=== PATIENT | male | born 1985 | race American Indian/Alaskan Native ===

== ENCOUNTER 2018-05-03 01:53 | Emergency (ER) | payer SELFPAY ==
[2018-05-03 02:44] VITALS: BP 122/86
[2018-05-03] MEDS ORDERED: TYLENOL ONE (06:59)
[2018-05-03] MEDS ORDERED: TYLENOL PO ONE (07:00)
--- NOTE | 2018-05-05 14:26 | XRay Report ---
FINAL REPORT PROCEDURE: XR KNEE 3V LT TECHNIQUE: LEFT knee radiographs, AP, lateral and sunrise views. CPT 85114 HISTORY: twisted knee COMPARISON: No prior studies are available for comparison. FINDINGS: Fracture (s) and/or Dislocation(s): None . Alignment: Normal . Joint space(s): Normal . Soft tissues: There is a large suprapatellar effusion.. Bone mineralization: Normal . Foreign bodies: None . IMPRESSION: There is no acute bony or soft tissue abnormality. There is a joint effusion..
== END 2018-05-03 07:30 | disposition left against medical advice (07) ==
LOC: ED 01:53
DX: M25.562 Pain in left knee (principal); Z53.21 Procedure and treatment not carried out due to patient leaving prior to being seen by health care provider

== ENCOUNTER 2019-02-11 23:31 | Emergency (ER) | payer OTHER ==
[2019-02-12 00:04] VITALS: BP 145/90
[2019-02-12] MEDS ORDERED: NORCO 5/325 PO ONE (01:04)
--- NOTE | 2019-02-12 01:09 | Emergency Department Report ---
Abscess Boil HPI - HPI Chief Complaint: Skin/Abscess/Foreign Body Stated Complaint: CYST ON R INNER THIGH/SWELLING Time Seen by Provider: 02/12/19 00:53 Duration: 3 Days Location: Lower Extremity Severity: Moderate History: Yes Pain, Yes Previous History, No Fever, No Purulent Drainage, No Numbness, No Foreign Body, No Insect Bite HPI: Patient is a 32-year-old male presents to ED complaining of right groin swelling and tenderness for the past 3 days he denies he was a cyst is nausea vomiting. Home Medications: Home Medications Medication Instructions Recorded Confirmed Last Taken Multivitamin [Multi-Vitamin Daily] 1 tab PO DAILY 11/28/13 03/19/15 03/18/15 Previous Rx's Medication Instructions Recorded Last Taken Type ALBUTEROL Inhaler (OR & NICU) 2 puff IH QID PRN #1 inhalation 11/15/14 Unknown Rx [ProAir HFA Inhaler] Ibuprofen [Motrin 800 MG tab] 800 mg PO Q8H PRN #30 tablet 03/20/15 Unknown Rx oxyCODONE /ACETAMINOPHEN [Percocet 1 tab PO Q8HR PRN #12 tablet 03/20/15 Unknown Rx 5/325 mg] Acetaminophen/Codeine [Tylenol #3] 1 tab PO Q6H PRN #20 tab 11/03/15 Unknown Rx Penicillin Vk [Veetids TAB] 500 mg PO QID #40 tablet 11/03/15 Unknown Rx Penicillin Vk [Veetids TAB] 250 mg PO QID #28 tablet 11/23/16 Unknown Rx traMADol [Ultram] 50 mg PO Q4HR PRN #15 tablet 11/23/16 Unknown Rx Ibuprofen [Motrin 800 MG tab] 800 mg PO Q8HR PRN #30 tablet 02/12/19 Unknown Rx Sulfamethoxazole/Trimethoprim 1 each PO BID #20 tablet 02/12/19 Unknown Rx [Bactrim DS TAB] Allergies/Adverse Reactions: Allergies Allergy/AdvReac Type Severity Reaction Status Date / Time raspberry [Raspberry] Allergy Itching Verified 11/03/15 09:04 ED Review of Systems ROS: Stated complaint: CYST ON R INNER THIGH/SWELLING Other details as noted in HPI Comment: All other systems reviewed and negative ED Past Medical Hx - Past Medical History Previous Medical History?: Yes Hx Hypertension: Yes Hx Headaches / Migraines: Yes (migraines) Hx Asthma: Yes - Surgical History Past Surgical History?: No - Social History Smoking Status: Current Every Day Smoker Substance Use Type: Alcohol - Medications Home Medications: Home Medications Medication Instructions Recorded Confirmed Last Taken Type Multivitamin [Multi-Vitamin Daily] 1 tab PO DAILY 11/28/13 03/19/15 03/18/15 History ALBUTEROL Inhaler (OR & NICU) 2 puff IH QID PRN #1 inhalation 11/15/14 03/19/15 Unknown Rx [ProAir HFA Inhaler] Ibuprofen [Motrin 800 MG tab] 800 mg PO Q8H PRN #30 tablet 03/20/15 Unknown Rx oxyCODONE /ACETAMINOPHEN [Percocet 1 tab PO Q8HR PRN #12 tablet 03/20/15 Unknown Rx 5/325 mg] Acetaminophen/Codeine [Tylenol #3] 1 tab PO Q6H PRN #20 tab 11/03/15 Unknown Rx Penicillin Vk [Veetids TAB] 500 mg PO QID #40 tablet 11/03/15 Unknown Rx Penicillin Vk [Veetids TAB] 250 mg PO QID #28 tablet 11/23/16 Unknown Rx traMADol [Ultram] 50 mg PO Q4HR PRN #15 tablet 11/23/16 Unknown Rx Ibuprofen [Motrin 800 MG tab] 800 mg PO Q8HR PRN #30 tablet 02/12/19 Unknown Rx Sulfamethoxazole/Trimethoprim 1 each PO BID #20 tablet 02/12/19 Unknown Rx [Bactrim DS TAB] ED Abscess Boil Physical Exam - Exam General: Vital signs noted. No distress. Alert and acting appropriately. Size: 2 cm Exam: Yes Tenderness, Yes Fluctuance, No Surrounding Cellulites/Erythema, No Lymphangitis, No Crepitation, No Heart Murmur, No Normal Neurologic Exam, No Normal Circulation I & D Note - I & D Note I & D Note: ID notePatient positioned appropriately, 5cc lidocainewithout epinephrine was used as a local anesthetic. #11 blade scalpal used for single incision. Additional local anesthetic injected into surrounding viable tissue prior to blunt dissection of loculated adhesions. Copius drainage of pus. Wound packed with iodoform gauze. Procedure tolerated without complications. Wound dressed with sterile 4x4 guaze and paper tape. Pt tolerated procedure well. ED Course Vital Signs 02/12/19 00:00 Temperature 98.4 F Pulse Rate 110 H Respiratory 18 Rate Blood Pressure 145/90 O2 Sat by Pulse 97 Oximetry Critical care attestation.: If time is entered above; I have spent that time in minutes in the direct care of this critically ill patient, excluding procedure time. ED Disposition Clinical Impression: Abscess of groin, right Disposition: [id number] TO HOME OR SELFCARE Is pt being admited?: No Does the pt Need Aspirin: No Condition: Stable Instructions: Abscess (ED), Abscess Incision and Drainage (ED) Additional Instructions: Make sure to follow up with the primary care physician as discussed. Take all your medications as you've been prescribed. If you have any worsening symptoms or develop new symptoms please return to ED immediately. Prescriptions: Sulfamethoxazole/Trimethoprim [Bactrim DS TAB] 1 each PO BID #20 tablet Ibuprofen [Motrin 800 MG tab] 800 mg PO Q8HR PRN #30 tablet PRN Reason: pain Referrals: DIAN SANDHU MD [Primary Care Provider] - 3-5 Days Forms: Work/School Release Form(ED)
[2019-02-12] MEDS ORDERED: ZOFRAN ODT PO ONE (01:19)
[2019-02-12] MEDS ORDERED: ZOFRAN ODT ONE (01:21)
[2019-02-12] MEDS ORDERED: XYLOCAINE 2% INFILTRATI ONE (02:13)
[2019-02-12] MEDS ORDERED: XYLOCAINE 1% 20 mL INFILTRATI NR (02:15)
== END 2019-02-12 02:10 | disposition home or self-care (01) ==
LOC: ED 23:31
DX: L02.214 Cutaneous abscess of groin (principal); I10 Essential (primary) hypertension; G43.909 Migraine, unspecified, not intractable, without status migrainosus; J45.909 Unspecified asthma, uncomplicated; F17.200 Nicotine dependence, unspecified, uncomplicated
CPT/HCPCS: 99282; Q0162